=== PATIENT | female | born 1980 | race Caucasian/White ===

== ENCOUNTER → 2016-07-30 | Outpatient (CLI) | payer MEDICARE ==
[2016-07-30 11:09] LABS: HEMOGLOBIN 17.1 gm/dl (12.3-15.3); RED BLOOD COUNT 5.23 M/UL (4.00-5.10)
[2016-07-30 11:18] LABS: BUN/CREATININE RATIO 5 (0-10)
== END ==
LOC: LAB 10:42
PROVIDERS: Dermatology
DX: B35.5 Tinea imbricata (principal); B35.1 Tinea unguium; B35.3 Tinea pedis
CPT/HCPCS: 36415; 80053; 82248; 85027